=== PATIENT | female | born 1970 | race Caucasian/White ===

== ENCOUNTER 2017-01-21 15:03 | Emergency (ER) | payer OTHER ==
[~2017-01-21 15:03] MED LIST: ADVAIR 100-501 EAC1 IH; ADVAIR 2501 DISK W/D PO; ADVIL200 M1 DOB; ALB/IPRATROPIUM/1 E1 INH; ALBUTEROL MININEB NEB; ALBUTEROL17 G1; ALBUTEROL17 G1 IH; ALBUTEROL17 G1 INH; ALBUTEROL17 GM; ALBUTEROL17 GM INH; AMOXICILLIN500 M1 PO; ANTIVERT PO; BACTRIM DS TABL1 TA1 PO; BREO ELLIPTA I1 EACH INH; BROMPHED DM PO; CIPRO PO; DOXYCYCLINE HY100 M1 PO; GUAIFENESIN W-120 ML PO; HYCODAN60 ML 5MG/ PO; IBUPROFEN600 MG PO; INDERAL20 MG PO; K-DUR20 ME1 PO; LEVAQUIN750 MG PO; MECLIZINE HCL; MEDI-MECLIZINE25 M1; MEDROL DOSEPAK4 MG DOB; MEDROL DOSEPAK4 MG PO; MEDROL PO; MEDROL4 MG/DOSE- PO; MUCINEX DM1 TAB.SR . PO; NYSTATIN5 ML PO; PEN-VEE K PO; PREDNISONE; PREDNISONE PO; PREDNISONE10 MG/DOSE PO; PROAIR HFA8.5 GM IH; PROPANOLOL PO; PROPRANOLOL PO; PROVENTIL17 GM INH; SINGULAIR; SINGULAIR PO; SYMBICORT INH; TAMIFLU75 M1 PO; VIBRAMYCIN100 M1 PO; VOLTAREN75 MG PO; ZITHROMAX PO; ZOFRAN ODT4 MG/UDTAB SL; [UNRECOGNIZED DRUG - OTHER] PO
== END 2017-01-21 15:55 | disposition home or self-care (01) ==
LOC: SED 15:03
DX: R42 Dizziness and giddiness (principal); H66.92 Otitis media, unspecified, left ear; F17.200 Nicotine dependence, unspecified, uncomplicated; Z88.8 Allergy status to other drugs, medicaments and biological substances
CPT/HCPCS: 99282